=== PATIENT | male | born 1955 | race African-American/Black ===

== ENCOUNTER 2017-01-21 15:28 | Emergency (ER) | payer OTHER ==
[~2017-01-21] VITALS: Ht 177.8 cm; Wt 108.9 kg
[~2017-01-21 15:28] MED LIST: ACET-2619 PO; AMOX-999 PO; ASPI81CT89 PO; GABA-636 PO; GLIP5TAB13 PO; METF100028 PO
[2017-01-21 15:41] VITALS: BP 151/80
--- NOTE | 2017-01-21 20:26 | NUR ---
TO ER BED 6
[2017-01-21] MEDS ORDERED: KETOROLAC 30 MG/ML VIAL IM ONE (20:30)
[2017-01-21] MEDS ORDERED: HYDROcodone/APAP 5/325 MG 1 TAB TAB PO ONE (20:30)
--- NOTE | 2017-01-21 20:35 | NUR ---
PT PRESENTS TO ER FOR EVALUATION OF ELEVATED BLOOD SUGAR. BLOOD SUGAR UPON ARRIVAL TO ER 430, PT STATES HE ATE LUNCH PRIOR TO ARRIVAL AT ER. PT STATES HX OF DM AND HTN . DENIES N/V/D; SKIN IS PINK/WARM/DRY; AAOX4 WITH EVEN AND STEADY GAIT WITH CANE; LUNGS CLEAR BL; HR EVEN AND REGULAR; PT DENIES ANY FEVER, CP, SOB, OR COUGH AT THIS TIME; PATIENT STATES PAIN OF 8/10 AT THIS TIME; VSS; PATIENT POSITIONED FOR COMFORT; HOB ELEVATED; BEDRAILS UP X2; BED DOWN. ER MD MADE AWARE OF PT STATUS.
--- NOTE | 2017-01-21 20:42 | NUR ---
CURRENT BLOOD GLUCOSE IS 269
[2017-01-21 21:08] LABS: BASOPHILS # (AUTO) 0.1 K/uL (0.00-0.22); BASOPHILS % (AUTO) 1.4 % (0.0-2.0); EOSINOPHILS # (AUTO) 0.8 K/uL (0-0.4); EOSINOPHILS % (AUTO) 11.1 % (0.0-4.0); HEMATOCRIT 30.8 % (36-52); HEMOGLOBIN 10.9 g/dL (12.0-18.0); LYMPHOCYTES # (AUTO) 1.4 K/uL (2.0-11.5); LYMPHOCYTES % (AUTO) 20.8 % (20.5-51.1); MEAN CORPUSCULAR HEMOGLOBIN 31 pg (27-31); MEAN CORPUSCULAR HGB CONC 35 g/dL (33-37); MEAN CORPUSCULAR VOLUME 86 fL (80-94); MONOCYTES # (AUTO) 0.4 K/uL (0.8-1.0); MONOCYTES % (AUTO) 6.4 % (1.7-9.3); NEUTROPHILS # (AUTO) 4.3 K/uL (1.8-7.7); NEUTROPHILS % (AUTO) 60.3 % (42.2-75.2); PLATELET COUNT (AUTO) 188 K/uL (140-450); RED BLOOD CELL COUNT(AUTO) 3.57 MIL/uL (4.20-6.10); RED CELL DISTRIBUTION WIDTH 14.4 % (11.6-13.7)
[2017-01-21 21:23] LABS: ANION GAP 8.9 (8-16); CALCIUM 7.9 mg/dL (8.5-10.1); CARBON DIOXIDE 30.1 mmol/L (21-32); CREATININE 1.5 mg/dL (0.7-1.3)
[2017-01-21] MEDS ORDERED: INSULIN HUMAN REGULAR 100 UNITS/ML 10 ML VIAL SUBQ ONE (21:25)
[2017-01-21 22:03] VITALS: BP 138/76
--- NOTE | 2017-01-21 22:03 | NUR ---
Patient discharged with v/s stable. Written and verbal after care instructions given and explained. Patient alert, oriented and verbalized understanding of instructions. Ambulatory with steady gait. All questions addressed prior to discharge. ID band removed. Patient advised to follow up with PMD. Rx of TYLENOL WITH CODEINE, NAPROSYN given. Patient educated on indication of medication including possible reaction and side effects. Opportunity to ask questions provided and answered.
== END 2017-01-21 22:03 | disposition home or self-care (01) ==
LOC: MED 15:28
DX: M79.661 Pain in right lower leg (principal); E11.65 Type 2 diabetes mellitus with hyperglycemia; I10 Essential (primary) hypertension
CPT/HCPCS: 36415; 80048; 82948; 85025; 96372; 99284; J1815; J1885

== ENCOUNTER 2017-10-31 07:11 | Inpatient (IN) | payer OTHER ==
[~2017-10-31] VITALS: Ht 180.3 cm; Wt 94.3 kg
[2017-10-31 07:22] VITALS: BP 153/80
--- NOTE | 2017-10-31 07:36 | NUR ---
62/M PRESENT TO ER C/O DIARRHEA x 2 DAYS. PT DENIES NAUSEA AND VOMITING. PT DENIES TAKING ANY MEDS PRIOR TO ER VISIT. SKIN IS PINK/WARM/DRY; AAOX4 WITH EVEN AND STEADY GAIT; LUNGS CLEAR BL; HR EVEN AND REGULAR; PT DENIES ANY FEVER, CP, SOB, OR COUGH AT THIS TIME; PATIENT STATES PAIN OF 0/10 AT THIS TIME; VSS; PATIENT POSITIONED FOR COMFORT; HOB ELEVATED; BEDRAILS UP X2; BED DOWN. ER MD MADE AWARE OF PT STATUS.
[2017-10-31] MEDS ORDERED: NACL 0.9% 1,000 ML IV ONE (07:55)
[2017-10-31 08:23] LABS: BASOPHILS # (AUTO) 0.1 K/uL (0.00-0.22); EOSINOPHILS # (AUTO) 0.5 K/uL (0-0.4); EOSINOPHILS % (AUTO) 7.8 % (0.0-4.0); HEMATOCRIT 23.5 % (36-52); HEMOGLOBIN 7.8 g/dL (12.0-18.0); LYMPHOCYTES % (AUTO) 15.7 % (20.5-51.1); MEAN CORPUSCULAR HEMOGLOBIN 30 pg (27-31); MEAN CORPUSCULAR HGB CONC 33 g/dL (33-37); MEAN CORPUSCULAR VOLUME 88.7 fL (80-94); MONOCYTES # (AUTO) 0.5 K/uL (0.8-1.0); MONOCYTES % (AUTO) 7.8 % (1.7-9.3); NEUTROPHILS # (AUTO) 4.1 K/uL (1.8-7.7); NEUTROPHILS % (AUTO) 67.7 % (42.2-75.2); PLATELET COUNT (AUTO) 154 K/uL (140-450); RED BLOOD CELL COUNT(AUTO) 2.64 MIL/uL (4.20-6.10); RED CELL DISTRIBUTION WIDTH 13.7 % (11.6-13.7); WHITE BLOOD COUNT (AUTO) 6.1 K/uL (4.8-10.8)
[2017-10-31 08:31] LABS: ANION GAP 15.1 (8-16); CREATININE 3.5 mg/dL (0.7-1.3); POTASSIUM 4.1 mmol/L (3.5-5.1)
[2017-10-31 08:36] LABS: ALBUMIN 1.8 g/dL (3.4-5.0); TOTAL BILIRUBIN 0.2 mg/dL (0.0-1.0)
[2017-10-31] MEDS ORDERED: NOVR SUBQ (09:38)
[2017-10-31] MEDS ORDERED: NACL 0.9% 1,000 ML IV SCH (09:56)
[2017-10-31] MEDS ORDERED: ACETAMINOPHEN 325 MG TAB PO PRN (10:00)
[2017-10-31] MEDS ORDERED: ONDANSETRON 4 MG/2 ML VIAL IVP PRN (10:00)
[2017-10-31] MEDS ORDERED: MORPHINE SULFATE 4 MG/ML SYR IVP PRN (10:00)
--- NOTE | 2017-10-31 11:54 | NUR ---
Spoke with Dr Castillo, updatedon labs and pt's status. Primary nurse Grzegorz QUILES notified.
[2017-10-31] MEDS: NACL 0.9% 1,000 ML IV SCH (13:05)
--- NOTE | 2017-10-31 13:06 | NUR ---
Patient will be admitted to care of DR. KASPER . Admited to TELE . Will go to room 105B. Belongings list completed. Report to KB MATHEW .
[2017-10-31 13:10] VITALS: BP 128/86
--- NOTE | 2017-10-31 13:10 | NUR ---
ADMITTED PT FROM ER BY JUANCARLOS, PT AWAKE, ALERT, AND ORIENTED. ON ROOM AIR, NO S/S OF RESPIRATORY DISTRESS NOTED. PT LEFT EYE BLIND. PT ABLE TO MOVE ALL HER EXTREMITIES, BUT PT STATED HE HAS WEAKNESS TO BOTH LOWER EXTREMITIES, PT USES CRUTCHES AT HOME, PT NPO UNTIL 15OO, POC EXPLAINED TO PT, PT VERBALIZED UNDERSTANDING, WILL CONTINUE TO MONITOR. CALL LIGHT IN REACH.
--- NOTE | 2017-10-31 14:10 | NUR ---
PT'S AND MOTHER IN LAW AT BEDSIDE.
[2017-10-31 16:00] VITALS: BP 135/75
[2017-10-31] MEDS: BLOOD GLUCOSE MONITORING 1 DEV DEV FS SCH ×2 (17:15→21:06)
--- NOTE | 2017-10-31 18:00 | NUR ---
PT RESTING IN BED, AWAKE, ALERT. NO SOB. MRSA NARES DONE, SAMPLE CUPS FOR URINE AND BM OFFERED TO PT, UNABLE TO COLLECT SAMPLE AT THIS TIME.
--- NOTE | 2017-10-31 19:08 | NUR ---
PT RESTING IN BED , BEDSIDE REPORT GIVEN TO PM NURSE. PT VITALS STABLE AT THIS MOMENT.
--- NOTE | 2017-10-31 19:10 | NUR ---
RECEIVED REPORT FROM DAY SHIFT NURSE. AAOX4. NO DISTRESS NOTED. IV TO RIGHT HAND #22G, NS AT 50 ML/HR. 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 NO C/O PAIN. DISCUSSED PLAN OF CARE. PT'S VERBALIZED UNDERSTANDING. SAFETY PRECAUTION IN PLACE. CALL LIGHT WITHIN REACH.
[2017-10-31 20:00] VITALS: BP 143/84
--- NOTE | 2017-10-31 20:05 | NUR ---
PT HAS WATERY STOOL. COLLECTED STOOL SAMPLE AND SENT TO LAB.
[2017-10-31] MEDS: INSULIN LISPRO SLIDING SCALE 100 UNITS/ML VIAL SUBQ PRN (20:51)
--- NOTE | 2017-10-31 21:00 | NUR ---
PAGED DR. KASPER. DR. RODRIGUEZ RESIN REMOVER. CLARIFIED ROUTE FOR HEPARIN. DR. RODRIGUEZ ORDERED HEPARIN SUBQ.
--- NOTE | 2017-10-31 23:30 | NUR ---
PT LYING COMFORTABLY IN BED. NO C/O PAIN. NEEDS MET AT THIS TIME. CALL LIGHT WITHIN REACH.
[2017-11-01] VITALS: BP 135/70
--- NOTE | 2017-11-01 02:00 | NUR ---
PT RESTING IN BED WITH EYES CLOSED. RESP EVEN AND UNLABORED. NO DIARRHEA NOTED AT THIS TIME. NO S/S OF PAIN. CALL LIGHT WITHIN REACH.
[2017-11-01 04:00] VITALS: BP 142/85
--- NOTE | 2017-11-01 04:20 | NUR ---
URINE COLLECTED AND SENT TO LAB. NO C/O PAIN OR DISCOMFORT.
--- NOTE | 2017-11-01 06:30 | NUR ---
BS CHECKED 115. PT AWAKE, NO C/O DIARRHEA. NO DISTRESS NOTED. CALL LIGHT WITHIN REACH.
--- NOTE | 2017-11-01 06:50 | NUR ---
PATIENT HAS BEEN SCREENED AND CATEGORIZED HIGH NUTRITION RISK. PATIENT WILL BE SEEN WITHIN 1-2 DAYS OF ADMISSION. 11/01/17-11/02/17 TENISHA VARELA MS, RDN
[2017-11-01] MEDS: BLOOD GLUCOSE MONITORING 1 DEV DEV FS SCH ×3 (06:58→16:57)
--- NOTE | 2017-11-01 07:05 | NUR ---
ENDORSED PT TO DAY SHIFT NURSE. PT IN STABLE CONDITION.
--- NOTE | 2017-11-01 07:10 | NUR ---
RECEIVED REPORT ABOUT THE PT FROM YARD JACKER NURSE. PT IS ASLEEP ON THE BED WITH A PERIPHERAL LINE AT RIGHT HAND G.22 WITH NS AT 50ML/HR, INTACT. SIDE RAILS ARE UP AND NO SIGN OF DISTRESS NOTED. CALL LIGHT WITHIN REACH. WILL MONITOR.
--- NOTE | 2017-11-01 07:40 | NUR ---
PT IS AWAKE LYING ON THE BED, VITAL SIGNS TAKEN AND ASSISTED TO CLEAN THE COMMODE, SEEN WATERY STOOL. PT HAS NO SIGN OF DISTRESS. CALL LIGHT WITHIN REACH. WILL MONITOR.
[2017-11-01 08:00] VITALS: BP 172/86
[2017-11-01 08:30] LABS: APPEARANCE,URINE CLEAR (CLEAR); BILIRUBIN,URINE NEGATIVE (NEGATIVE); COLOR,URINE YELLOW (YELLOW); LEUKOCYTE ESTERASE ,URINE NEGATIVE (NEGATIVE); NITRITE, URINE NEGATIVE (NEGATIVE); UGLUCOSE 2+ (NEGATIVE)
[2017-11-01 08:36] LABS: BLOOD, URINE 1+ (NEGATIVE)
[2017-11-01 08:37] LABS: RBC,URINE 0-5 (RARE) /HPF (0-5); WBC,URINE 0-5 (RARE) /HPF (0-5)
[2017-11-01 08:59] LABS: BASOPHILS # (AUTO) 0.1 K/uL (0.00-0.22); BASOPHILS % (AUTO) 1.1 % (0.0-2.0); EOSINOPHILS # (AUTO) 0.5 K/uL (0-0.4); EOSINOPHILS % (AUTO) 7.2 % (0.0-4.0); HEMATOCRIT 26.6 % (36-52); HEMOGLOBIN 8.7 g/dL (12.0-18.0); LYMPHOCYTES % (AUTO) 14.2 % (20.5-51.1); MEAN CORPUSCULAR HEMOGLOBIN 29 pg (27-31); MEAN CORPUSCULAR HGB CONC 33 g/dL (33-37); MEAN CORPUSCULAR VOLUME 88.8 fL (80-94); MONOCYTES # (AUTO) 0.5 K/uL (0.8-1.0); MONOCYTES % (AUTO) 7.8 % (1.7-9.3); NEUTROPHILS # (AUTO) 4.8 K/uL (1.8-7.7); NEUTROPHILS % (AUTO) 69.7 % (42.2-75.2); PLATELET COUNT (AUTO) 189 K/uL (140-450); RED BLOOD CELL COUNT(AUTO) 2.99 MIL/uL (4.20-6.10); WHITE BLOOD COUNT (AUTO) 6.9 K/uL (4.8-10.8)
[2017-11-01] MEDS: NACL 0.9% 1,000 ML IV SCH (09:00)
--- NOTE | 2017-11-01 09:30 | NUR ---
PT IS AWAKE AND NO SIGN OF DISTRESS NOPTED. HEPARIN INJECTION SUBQ GIVEN, PLATELETS CHECKED AT 154. PT TOLERATED IT. CALL LIGHT WITHIN REACH. WILL MONITOR.
[2017-11-01 09:38] LABS: ALBUMIN 1.8 g/dL (3.4-5.0); ANION GAP 16.4 (8-16); CARBON DIOXIDE 19.4 mmol/L (21-32); CREATININE 3.5 mg/dL (0.7-1.3); POTASSIUM 3.8 mmol/L (3.5-5.1); TOTAL BILIRUBIN 0.2 mg/dL (0.0-1.0)
--- NOTE | 2017-11-01 11:22 | NUR ---
11/01/17 RD INITIAL ASSESSMENT COMPLETED PLEASE REFER TO NUTRITION ASSESSMENT UNDER CARE ACTIVITY FOR ESTIMATED NUTRITIONAL NEEDS. RD RECOMMENDATIONS: 1. RECOMMEND CONTINUE ON CCHO DIET TOLERATED. 2. RDN TO PROVIDE DIET HEALTH SHAKES WITH ALL MEALS TO BETTER MEET KCAL NEEDS. 3. CONSULT RDN PRN. 4. RD WILL F/U 3-5 DAYS; MODERATE RISK. TENISHA VARELA MS, RDN
[2017-11-01] MEDS: INSULIN LISPRO SLIDING SCALE 100 UNITS/ML VIAL SUBQ PRN (11:40)
[2017-11-01 12:00] VITALS: BP 152/81
[2017-11-01 15:56] LABS: CREATININE,URINE RANDOM 54 mg/dL (30-125); URINE SODIUM, RANDOM 55 mmol/l (40-220)
[2017-11-01 16:00] VITALS: BP 152/78
--- NOTE | 2017-11-01 16:10 | NUR ---
PT IS SEEN BY DR. KASPER AND REPORTED THE PT'S BP 152/[address] KASPER JUST ACKNOWLEDGED IT. PT HAS NO SIGN OF DISTRESS. CALL LIGHT WITHIN REACH. WILL MONITOR
[2017-11-01] MEDS ORDERED: hydrALAZINE 20 MG/ML VIAL IVP PRN (17:15)
--- NOTE | 2017-11-01 18:40 | NUR ---
DR. BARKER ORDERED A STAT COLLECTION OF URINE TO THE PT FOR A TOTAL PROTEIN AND CREATININE CLEARANCE. ORDER ACKNOWLEDGED AND SAMPLE SENT TO LAB.
--- NOTE | 2017-11-01 18:50 | NUR ---
PT IS AWAKE AND SEATED ON THE BED AND EATING HIS DINNER. NO SIGN OF DISTRESS NOTED. CALL LIGHT WITHIN REACH. WILL MONITOR.
--- NOTE | 2017-11-01 19:03 | NUR ---
DISCHARGE ORDER WAS PLACED FOR THE PT. NEUROSURGERY PHYSICIAN NURSE WILL FACILITATE DISCHARGE PROCESS.
--- NOTE | 2017-11-01 19:10 | NUR ---
ENDORSED PT TO DEALER ANALYST NURSE FOR CONTINUITY OF CARE. PT IS STABLE AT THIS TIME.
[2017-11-01 19:38] VITALS: BP 160/82
--- NOTE | 2017-11-01 20:30 | NUR ---
PATIENT DISCHARGED TO HOME. DISCHARGE INSTRUCTIONS GIVEN. PATIENT VERBALIZED UNDERSTANDING. PATIENT LEFT WITH ALL HIS BELONGINGS AND DISCHARGE PAPERS. PATIENT LEFT IN STABLE CONDITION
[2017-11-01 22:30] LABS: TOTAL PROTEIN URINE 332.7 MG/DL
--- NOTE | 2017-11-03 17:22 | NUR ---
RETRO REVIEW ER REPORT, H&P AND CONSULT FAXED TO [facility] [phone] PHONE CARMEN [phone].
== END 2017-11-01 20:30 | disposition home or self-care (01) | DRG 470 ==
LOC: MED 07:11 → MTU 10:00
PROVIDERS: ADMIT Hospitalist; ATTEND Hospitalist
DX: I12.9 Hypertensive chronic kidney disease with stage 1 through stage 4 chronic kidney disease, or unspecified chronic kidney disease (principal); N17.9 Acute kidney failure, unspecified; E11.22 Type 2 diabetes mellitus with diabetic chronic kidney disease; E11.51 Type 2 diabetes mellitus with diabetic peripheral angiopathy without gangrene; N18.9 Chronic kidney disease, unspecified; D64.9 Anemia, unspecified; H54.40 Blindness, one eye, unspecified eye; E78.5 Hyperlipidemia, unspecified; Z79.82 Long term (current) use of aspirin; Z79.84 Long term (current) use of oral hypoglycemic drugs; Z87.891 Personal history of nicotine dependence; Z87.442 Personal history of urinary calculi; Z79.4 Long term (current) use of insulin
CPT/HCPCS: 36415; 74022; 74250; 76770; 80053; 81001; 82570; 82575; 82948; 84156; 84300; 85025; 87045; 87070; 87081; 89055; 96360; 97110; 99285; J1644; J1815; J7030; Q0092